=== PATIENT | female | born 1965 | race African-American/Black ===

== ENCOUNTER 2019-07-16 13:25 | Emergency (ER) | payer MEDICAID ==
[~2019-07-16] VITALS: Ht 165.1 cm; Wt 87.0 kg
[~2019-07-16 13:25] MED LIST: motrin; prevacid
[2019-07-16] MEDS ORDERED: KETOROLAC 30MG/ML VIAL IV STA (16:50)
[2019-07-16] MEDS ORDERED: MORPHINE SULFATE 4 MG/ML CPJ (NOT FOR IM USE) IV STA (16:50)
[2019-07-16] MEDS ORDERED: ONDANSETRON HCL 4MG/2ML INJ IV STA (16:50)
[2019-07-16] MEDS ORDERED: SODIUM CHLORIDE 0.9% 1,000 ML IV ONE (16:50)
[2019-07-16 17:08] LABS: BASOPHILS % 0.5 % (0.0-2.0); EOSINOPHILS % 0.2 % (0.0-5.0); HEMATOCRIT. 35.6 % (36.0-48.0); HEMOGLOBIN. 12.2 g/dL (12.0-16.0); LYMPHOCYTES % 42.6 % (20.0-50.0); MEAN CORPUSCULAR HEMOGLOBIN 33.1 pg (28.0-32.0); MEAN CORPUSCULAR VOLUME 96.7 fL (81.0-99.0); MEAN PLATELET VOLUME 8.1 fl (7.4-10.4); NEUTROPHILS % 43.7 % (40.0-76.0); PLATELET 214 x1000/uL (130-400); RED BLOOD CELL COUNT 3.68 mill/uL (4.2-5.4); RED CELL DISTRIBUTION WIDTH 12.5 % (11.6-14.6)
[2019-07-16 17:13] LABS: CHLORIDE 110 mEq/L (98-107)
[2019-07-16 17:16] LABS: HCG SCREEN NEGATIVE
[2019-07-16 18:18] LABS: CLARITY URINE CLEAR (CLEAR); COLOR URINE YELLOW (YELLOW); KETONES URINE NEGATIVE (NEGATIVE); LEUKOCYTE ESTERASE URINE NEGATIVE (NEGATIVE); NITRITE URINE NEGATIVE (NEGATIVE); OCCULT BLOOD URINE NEGATIVE (NEGATIVE); PROTEIN URINE NEGATIVE (NEGATIVE); SPECIFIC GRAVITY URINE 1.012 (1.005-1.030); UROBILINOGEN URINE 0.2 E.U./dL (0.2-1.0)
[2019-07-16 19:20] VITALS: BP 124/71
== END 2019-07-16 19:42 | disposition home or self-care (01) ==
LOC: ER 13:25
DX: R10.9 Unspecified abdominal pain (principal)
CPT/HCPCS: 36415; 74176; 80053; 81003; 83690; 83880; 84484; 84703; 85025; 93005; 96374; 96375; 99284; J1885; J2270; J2405; J7030